=== PATIENT | female | born 1945 | race Hispanic/Latino ===

== ENCOUNTER 2018-06-09 06:02 | Inpatient (IN) | payer MEDICARE, MEDICAID ==
[2018-06-09 06:03] VITALS: BMI 31.2
--- NOTE | 2018-06-09 06:12 | ED PDOC ---
Arrival/HPI - General Chief Complaint: Abdominal Pain Time Seen by Provider: 06/09/18 06:07 Historian: Patient - History of Present Illness Narrative History of Present Illness (Text): 06/09/18 06:11 Carito Bernal is a 72 year old female, whose past medical history includes hypertension, who presents to the Emergency department brought in by EMS complaining of abdominal pain. Patient states she has been experiencing wors ening upper abdominal pain since 13:00 yesterday with associated nausea and multiple episodes of vomiting. Patient also reports some associated constipation. Patient denies any fever, chills, chest pain, shortness of breath, urinary symptoms, back pain, neck pain, headache, dizziness, or any other complaints. Symptom Onset: Gradual Symptom Course: Unchanged Activities at Onset: Light Context: Home Past Medical History - Provider Review Nursing Documentation Reviewed: Yes - Infectious Disease Hx of Infectious Diseases: None - Reproductive Menopause: Yes Family/Social History - Physician Review Nursing Documentation Reviewed: Yes Family/Social History: Unknown Family HX Allergies/Home Meds Allergies/Adverse Reactions: Allergies No Known Allergies Allergy (Verified 06/09/18 06:07) Home Medications: Home Meds Medication Instructions Recorded Confirmed No Known Home Med 06/09/18 06/09/18 Review of Systems - Physician Review All systems were reviewed & negative as marked: Yes - Review of Systems Constitutional: Normal. absent: Fevers Eyes: Normal ENT: Normal Respiratory: Normal. absent: SOB, Cough Cardiovascular: Normal. absent: Chest Pain Gastrointestinal: Abdominal Pain, Constipation, Nausea, Vomiting. absent: Diarrhea Genitourinary Female: Normal. absent: Dysuria, Frequency, Hematuria, Urine Output Changes Musculoskeletal: Normal. absent: Back Pain, Neck Pain Skin: Normal. absent: Rash Neurological: Normal. absent: Headache, Dizziness Endocrine: Normal Hemo/Lymphatic: Normal Psychiatric: Normal Physical Exam Vital Signs Reviewed: Yes Vital Signs Temp Pulse Resp BP Pulse Ox 06/09/18 06:03 98.6 F 76 20 167/116 H 99 Temperature: Afebrile Blood Pressure: Hypertensive Pulse: Regular Respiratory Rate: Normal Appearance: Positive for: Well-Appearing, Non-Toxic, Comfortable Pain Distress: None Mental Status: Positive for: Alert and Oriented X 3 - Systems Exam Head: Present: Atraumatic, Normocephalic Pupils: Present: PERRL Extroacular Muscles: Present: EOMI Conjunctiva: Present: Normal Mouth: Present: Moist Mucous Membranes Neck: Present: Normal Range of Motion Respiratory/Chest: Present: Clear to Auscultation, Good Air Exchange. No: Respiratory Distress, Accessory Muscle Use Cardiovascular: Present: Regular Rate and Rhythm, Normal S1, S2. No: Murmurs Abdomen: Present: Tenderness (RUQ tenderness), Guarding (Voluntary guarding). No: Distention, Peritoneal Signs Back: Present: Normal Inspection Upper Extremity: Present: Normal Inspection. No: Cyanosis, Edema Lower Extremity: Present: Normal Inspection. No: Edema Neurological: Present: GCS=15, CN II-XII Intact, Speech Normal Skin: Present: Warm, Dry, Normal Color. No: Rashes Psychiatric: Present: Alert, Oriented x 3, Normal Insight, Normal Concentration Medical Decision Making ED Course and Treatment: 06/09/18 06:11 Impression: 72 year old female complaining of upper abdominal pain with associated nausea and vomiting since 13:00 yesterday. Plan: -- EKG -- Chest X-ray -- US Abdomen -- Labs -- UA -- Reassess and disposition Progress Notes: Reviewed EKG, NSR at 72 bpm. Non-specific T wave changes. 06/09/18 07:[address] Esqueda, pending US, Chest X-ray, labs, reassessment, and final disposition. - EKG Interpretation Interpreted by ED Physician: Yes Type: 12 lead EKG - Scribe Statement The provider has reviewed the documentation as recorded by the Carmenzaibfloridalma Kendall Provider Scribe Attestation: All medical record entries made by the Scribe were at my direction and personally dictated by me. I have reviewed the chart and agree that the record accurately reflects my personal performance of the history, physical exam, medical decision making, and the department course for this patient. I have also personally directed, reviewed, and agree with the discharge instructions and disposition. Disposition/Present on Arrival - Present on Arrival Any Indicators Present on Arrival: No History of DVT/PE: No History of Uncontrolled Diabetes: No Urinary Catheter: No History of Decub. Ulcer: No History Surgical Site Infection Following: None - Disposition Have Diagnosis and Disposition been Completed?: No Diagnosis: Abdominal pain Disposition Time: 07:00 Condition: STABLE Forms: [employer] ([place]ic)
[2018-06-09] MEDS ORDERED: Morphine 2 mg/ml ISec IVP STA (06:28)
[2018-06-09] MEDS ORDERED: Sodium Chloride 0.9% 1,000 ML IV STA (06:28)
[2018-06-09 06:42] LABS: MEAN CELL VOLUME 93.8 fl (80.0-105.0); MEAN CORPUSCULAR HEMOGLOBIN 32.5 pg (25.0-35.0); MEAN CORPUSCULAR HGB CONC 34.7 g/dl (31.0-37.0); MEAN PLATELET VOLUME 9.7 fl (7.0-11.0); WHITE BLOOD COUNT 9.1 10^3/uL (4.5-11.0)
[2018-06-09 06:57] LABS: ALB/GLOB RATIO 1.3 (1.1-1.8); ALBUMIN 4.6 g/dL (3.0-4.8); ALT/SGPT 23 U/L (7-56); AST/SGOT 31 U/L (14-36); BLOOD UREA NITROGEN 20 mg/dL (7-21); CALCIUM 9.8 mg/dL (8.4-10.5); GFR NON-AFRICAN AMERICAN > 60; LIPASE 32 U/L (23-300)
--- NOTE | 2018-06-09 07:35 | ED PDOC ---
Physical Exam Vital Signs Reviewed: Yes Vital Signs Temp Pulse Resp BP Pulse Ox 06/09/18 06:03 98.6 F 76 20 140/83 99 Temperature: Afebrile Blood Pressure: Normal Pulse: Regular Respiratory Rate: Normal Appearance: Positive for: Well-Appearing, Non-Toxic, Comfortable Pain Distress: None Mental Status: Positive for: Alert and Oriented X 3 - Systems Exam Head: Present: Atraumatic, Normocephalic Pupils: Present: PERRL Extroacular Muscles: Present: EOMI Conjunctiva: Present: Normal Respiratory/Chest: Present: Clear to Auscultation, Good Air Exchange. No: Respiratory Distress, Accessory Muscle Use Cardiovascular: Present: Regular Rate and Rhythm, Normal S1, S2. No: Murmurs Abdomen: Present: Tenderness (RUQ tenderness), Guarding (Voluntary guarding). No: Distention, Peritoneal Signs Back: Present: Normal Inspection Upper Extremity: Present: Normal Inspection. No: Cyanosis, Edema Lower Extremity: Present: Normal Inspection. No: Edema Neurological: Present: GCS=15, CN II-XII Intact, Speech Normal Skin: Present: Warm, Dry, Normal Color. No: Rashes Psychiatric: Present: Alert, Oriented x 3, Normal Insight, Normal Concentration Medical Decision Making ED Course and Treatment: 06/09/18 07:00 Case endorsed to me by Dr. Becerra for pending US, Chest X-ray, labs, reassessment, and final disposition. Patient is a 72 year old female, who presented to the ED earlier today for evaluation of abdominal pain associated with nausea and multiple episodes of vomiting. Patient is currently resting in bed in no acute distress. Patient currently denies any new medical complaints. 06/09/18 07:44 Chest X-ray reviewed by radiologist, shows no acute disease. 06/09/18 07:56 US of Abdomen reviewed by radiologist, shows: Findings: Liver is normal in size measuring 14.9 cm. Right hepatic lobe cyst measuring 1 cm. Small amount of free perihepatic free fluid is noted. Positive sonographic [place]. Cholelithiasis. Gallbladder sludge is noted. Normal gallbladder wall thickness measuring 2.6 mm. Normal pancreas is visualized. Unremarkable IVC. Unremarkable aorta. Right renal simple cysts measuring 1.8 and 1.9 cm respectively. No other abnormality of the kidneys. Nondilated common bile duct measuring 5.8 mm Impression: Cholelithiasis. Acute calculus cholecystitis. - Lab Interpretations Lab Results: Total Bilirubin 0.6 mg/dL (0.2-1.3) 06/09/18 06:11 AST 31 U/L (14-36) 06/09/18 06:11 ALT 23 U/L (7-56) 06/09/18 06:11 Alkaline Phosphatase 88 U/L (38-126) 06/09/18 06:11 Total Protein 8.1 g/dL (5.8-8.3) 06/09/18 06:11 Albumin 4.6 g/dL (3.0-4.8) 06/09/18 06:11 Globulin 3.5 gm/dL 06/09/18 06:11 Albumin/Globulin Ratio 1.3 (1.1-1.8) 06/09/18 06:11 Lipase 32 U/L (23-300) 06/09/18 06:11 - RAD Interpretation Radiology Orders: 06/09/18 06:27 CHEST PORTABLE [RAD] Stat 06/09/18 06:28 ABDOMEN COMPLETE [US] Stat - Medication Orders Current Medication Orders: Discontinued Medications Sodium Chloride (Sodium Chloride 0.9%) 1,000 mls @ 999 mls/hr IV .Q1H1M STA Stop: 06/09/18 07:28 Last Admin: 06/09/18 06:37 Dose: 999 mls/hr eMAR Start Stop Document 06/09/18 06:37 EB (Rec: 06/09/18 06:37 EB [id number]) Intravenous Solution Start Date 06/09/18 Start Time 06:37 Morphine Sulfate (Morphine) 2 mg IVP STAT STA Stop: 06/09/18 06:29 Last Admin: 06/09/18 06:38 Dose: 2 mg MAR Pain Assessment Document 06/09/18 06:38 EB (Rec: 06/09/18 06:38 EB [id number]) Pain Reassessment Is this a pain reassessment? No Sleep Is patient sleeping during reassessment? No Presence of Pain Presence of Pain Yes Pain Scale Used Protocol: PSCALES Pain Scale Used Numeric Location Left, Right or Bilateral Left Upper or Lower Upper Pain Location Body Site Abdomen Description Intensity of Pain at present 8 Pain Behavior Irritability Facial Grimacing IVP Administration Document 01/28/19 06:38 EB (Rec: 06/09/18 06:38 EB [id number]) Charges for Administration # of IVP Administrations 1 Ondansetron HCl (Zofran Inj) 4 mg IVP ONCE ONE Stop: 06/09/18 06:31 Last Admin: 06/09/18 06:37 Dose: 4 mg IVP Administration Document 06/09/18 06:37 EB (Rec: 06/09/18 06:37 EB [id number]) Charges for Administration # of IVP Administrations 1 - Scribe Statement The provider has reviewed the documentation as recorded by the Scribe Taylor Dave. All medical record entries made by the Scribe were at my direction and personally dictated by me. I have reviewed the chart and agree that the record accurately reflects my personal performance of the history, physical exam, medical decision making, and the department course for this patient. I have also personally directed, reviewed, and agree with the discharge instructions and disposition. Disposition/Present on Arrival - Present on Arrival Any Indicators Present on Arrival: No History of DVT/PE: No History of Uncontrolled Diabetes: No Urinary Catheter: No History of Decub. Ulcer: No History Surgical Site Infection Following: None - Disposition Have Diagnosis and Disposition been Completed?: Yes Diagnosis: Abdominal pain, Acute cholecystitis Disposition: HOSPITALIZED Disposition Time: 08:15 Patient Problems: Current Active Problems Problem Status Onset Abdominal pain Acute Condition: FAIR
--- NOTE | 2018-06-09 07:42 | RAD ---
Date of service: 06/09/2018 HISTORY: abdominal pain COMPARISON: No prior. FINDINGS: LUNGS: No active pulmonary disease. PLEURA: No significant pleural effusion identified, no pneumothorax apparent. CARDIOVASCULAR: No aortic atherosclerotic calcification present. Normal cardiac size. No pulmonary vascular congestion. OSSEOUS STRUCTURES: No significant abnormalities. VISUALIZED UPPER ABDOMEN: Normal. OTHER FINDINGS: None. IMPRESSION: No acute cardiopulmonary disease appreciated.
--- NOTE | 2018-06-09 08:10 | US ---
Date of service: 06/09/2018 HISTORY: pain COMPARISON: None. TECHNIQUE: Sonographic evaluation of the abdomen. FINDINGS: LIVER: Measures 14.9 cm. Normal echogenicity of the liver parenchyma. There is a small cyst identified at the right lobe liver measure 1.0 x 1.0 cm. GALLBLADDER: Gallbladder is distended with cholelithiasis in the lumen and thickening of the wall up to 2.6 mm which is upper limits of normal. Trace pericholecystic fluid is suspected as well as sludge in the lumen of the gallbladder. There is hyperemia in the wall of gallbladder which is highly suspicious for cholecystitis. There is also a small positive sonographic Hoyos sign as per technologist. COMMON BILE DUCT: Measures 4.8 mm. No stones. No dilatation. PANCREAS: The body of the pancreas appears unremarkable but the head and tail are obscured by overling bowel/stomach gas. RIGHT KIDNEY: Measures 9.5cm. Small simple cysts are identified at the mid to lower pole measure 1.5 x 1.8 x 1.7 at the lower pole measure 1.9 x 1.3 x 1.6 cm. LEFT KIDNEY: Measures 12.2cm. Normal echogenicity. No calculus, mass, or hydronephrosis. SPLEEN: Normal in size and contour, measuring 11.2. No mass. AORTA: No aneurysmal dilatation. IVC: Unremarkable. OTHER FINDINGS: None. IMPRESSION: Pattern highly suspicious for cholecystitis. Clinically correlate. Normal CBD caliber. No choledocholithiasis is grossly evident. Small solitary, simple cyst is seen at the right lobe liver with 2 simple cysts identified at the right kidney
[2018-06-09 09:14] LABS: URINE BILIRUBIN NEGATIVE (NEGATIVE); URINE BLOOD TRACE-INTACT (NEGATIVE); URINE GLUCOSE (UA) NEGATIVE (NEGATIVE); URINE LEUKOCYTE ESTERASE NEGATIVE Leu/uL (NEGATIVE); URINE PROTEIN TRACE mg/dL (<30 mg/dL)
--- NOTE | 2018-06-09 09:14 | CP.PCM.CON ---
History of Present Illness - History of Present Illness History of Present Illness: Surgery consult note, Dr. Porter Reason for consult: RUQ pain 72 y/o female with PMH of HTN presnts to the ED with RUQ pain x1 day. Pain started after eating chicken with meatball yesterday, 01/20, intermittent, sharp, radiates to the back, progressive with no alleviating or worsening factors. It's associated with nausea, multiple episodes of NBNB vomiting. Patient denied fever, chills, diarrhea, hematemesis, hematochezia, melena. She denied h/o similar symptoms in the past, no history gallbladder/liver disease. Patient rosemary ed chest pain, SOB, headache, dizziness, leg swelling, urinary symptoms. She also denied recent travel or sick contacts. 12 points ROS reviewed with pertinent positives as above PMH: HTN PSH: denied Meds: amlodipine, atenolol All: NKDA SH: denied alcohol, smoking, drug use FH: non-contributory Past Patient History - Infectious Disease Hx of Infectious Diseases: None - Past Social History Smoking Status: Never Smoked - CARDIAC Hx Cardiac Disorders: No (pt denies) - PULMONARY Hx Respiratory Disorders: No - NEUROLOGICAL Hx Neurological Disorder: No - HEENT Hx HEENT Problems: No - RENAL Hx Chronic Kidney Disease: No - ENDOCRINE/METABOLIC Hx Endocrine Disorders: No - HEMATOLOGICAL/ONCOLOGICAL Hx Blood Disorders: No Hx AIDS: No - PSYCHIATRIC Hx Substance Use: No - SURGICAL HISTORY Hx Surgeries: No (pt denies) - ANESTHESIA Hx Anesthesia: No Meds Allergies/Adverse Reactions: Allergies Allergy/AdvReac Type Severity Reaction Status Date / Time No Known Allergies Allergy Verified 06/09/18 06:07 Physical Exam - Constitutional Appears: Well, No Acute Distress - Head Exam Head Exam: ATRAUMATIC, NORMAL INSPECTION, NORMOCEPHALIC - Eye Exam Eye Exam: EOMI, Normal appearance, PERRL Pupil Exam: NORMAL ACCOMODATION, PERRL - Neck Exam Neck exam: Positive for: Normal Inspection - Respiratory Exam Respiratory Exam: Clear to Auscultation Bilateral, NORMAL BREATHING PATTERN - Cardiovascular Exam Cardiovascular Exam: REGULAR RHYTHM - GI/Abdominal Exam GI & Abdominal Exam: Guarding (RUQ), Normal Bowel Sounds, Soft, Tenderness (RUQ). absent: Distended, Firm, Hernia, Organomegaly, Pulsatile Mass, Rebound, Rigid - Extremities Exam Extremities exam: Positive for: normal capillary refill, normal inspection, pedal pulses present - Neurological Exam Neurological exam: Alert, Oriented x3 - Psychiatric Exam Psychiatric exam: Anxious - Skin Skin Exam: Dry, Intact, Normal Color, Warm Results - Vital Signs Recent Vital Signs: Last Vital Signs Temp 98.6 F 06/09/18 06:03 Pulse 76 06/09/18 06:03 Resp 20 06/09/18 06:03 BP 140/83 06/09/18 06:03 Pulse Ox 99 06/09/18 06:03 - Labs Result Diagrams: 06/09/18 06:11 06/09/18 06:11 Labs: Laboratory Results - last 24 hr 06/09/18 06/09/18 06:11 06:11 WBC 9.1 RBC 4.00 Hgb 13.0 Hct 37.5 MCV 93.8 MCH 32.5 MCHC 34.7 RDW 13.0 Plt Count 173 MPV 9.7 Sodium 139 Potassium 3.8 Chloride 104 Carbon Dioxide 22 Anion Gap 16 BUN 20 Creatinine 0.6 L Est GFR ( Amer) > 60 Est GFR (Non-Af Amer) > 60 Random Glucose 187 H Calcium 9.8 Total Bilirubin 0.6 AST 31 ALT 23 Alkaline Phosphatase 88 Total Protein 8.1 Albumin 4.6 Globulin 3.5 Albumin/Globulin Ratio 1.3 Lipase 32 Assessment & Plan - Assessment and Plan (Free Text) Assessment: 72 y/o female with PMH of HTN presnts to the ED with RUQ pain x1 day Plan: -Patient afebrile, no leukocytosis, normal LFT/ALP/T-bili/Lipase -abd U/S: free perihepatic free fluid with GB sludge. Positive sonographic Hoy[place], GBW 2.6 mm, CBD 5.8 mm -pain control prn -continue PPI, antiemetic, IVF -started rocephin -further recs per surgical attending Dr. German Barrett DO
[2018-06-09 09:28] LABS: URINE APPEARANCE CLEAR (CLEAR); URINE COLOR YELLOW (YELLOW)
[2018-06-09 09:35] LABS: URINE AMORPHOUS SEDIMENT FEW /hpf; URINE BACTERIA MOD /hpf; URINE WBC 0 - 2 /hpf (0-6)
[2018-06-09] MEDS ORDERED: POLYETHYLENE GLYCOL 3350 17 GM/Dose PACKET PO STA (09:37)
[2018-06-09] MEDS ORDERED: Sodium Chloride 0.9% 1,000 ML IV SCH (09:45)
[2018-06-09] MEDS ORDERED: Piperacillin/Tazobact 3.375 gm 100 ML IVPB STA (09:49)
--- NOTE | 2018-06-09 11:26 | CARD ---
APPROVED REPORT Date of service: 06/09/2018 EKG Measurement Heart [id number] <Conclusion> Normal sinus rhythm Nonspecific T wave abnormality Prolonged QT Abnormal ECG
[2018-06-09] MEDS: cefTRIAXone 1 gm 1 GM/100 ML BAG IVPB SCH (11:32)
[2018-06-09] MEDS ORDERED: Morphine 2 mg/ml ISec IVP PRN (11:33)
--- NOTE | 2018-06-09 11:42 | CP.PCM.HP ---
<MohamudStyles - Last Filed: 06/10/18 00:03> History of Present Illness - History of Present Illness History of Present Illness: Stephani Mallory, PGY-1 Medicine H&P Progress Note for Dr. Lowery: CC: RUQ abd pain since 2 pm today Pt is a 72 yo F with pmhx of HTN who presents to the ED with complaints of RUQ pain since 2 pm. She admits to continued nausea and vomiting both of which started together this morning and is related to the abd pain. Pt states she had a similar episode in May. She states that the pain occurred after dinner yesterday. and she had multiple bouts of Non bloody, non-bilious vomiting. She states that the pain is raited to be a 9/10 and describes it as a sharp pain and that it feels as if a rock or stone is stuck in her belly. She also states that the pain radiates to her back. Pt otherwise states that she has no fevers, chills, headaches, lightheadedness, dizziness, chest pain, palpitations, SOB, cough, or dysuira. She admits to RUQ pain and nausea/vomiting. Pmhx: HTN Pshx: Denies Meds: Atenolol, norvasc All: NKDA Social: Denies any tobacco use or hx, denies recent etoh or illicit drug use Fam: non-contributory PMD: Carlos Pharm: Armani Baum Present on Admission - Present on Admission Any Indicators Present on Admission: No Review of Systems - Review of Systems Review of Systems: 12 point ROS negative except for noted in HPI above. Past Patient History - Infectious Disease Hx of Infectious Diseases: None - Past Social History Smoking Status: Never Smoked - CARDIAC Hx Cardiac Disorders: No (pt denies) - PULMONARY Hx Respiratory Disorders: No - NEUROLOGICAL Hx Neurological Disorder: No - HEENT Hx HEENT Problems: No - RENAL Hx Chronic Kidney Disease: No - ENDOCRINE/METABOLIC Hx Endocrine Disorders: No - HEMATOLOGICAL/ONCOLOGICAL Hx Blood Disorders: No Hx AIDS: No - PSYCHIATRIC Hx Substance Use: No - SURGICAL HISTORY Hx Surgeries: No (pt denies) - ANESTHESIA Hx Anesthesia: No Meds Allergies/Adverse Reactions: Allergies Allergy/AdvReac Type Severity Reaction Status Date / Time No Known Allergies Allergy Verified 06/09/18 06:07 Physical Exam - Constitutional Appears: Well, Non-toxic, No Acute Distress - Head Exam Head Exam: ATRAUMATIC, NORMAL INSPECTION, NORMOCEPHALIC - Eye Exam Eye Exam: EOMI, Normal appearance, PERRL - Respiratory Exam Respiratory Exam: Clear to Auscultation Bilateral, NORMAL BREATHING PATTERN. absent: Accessory Muscle Use, Rales, Rhonchi, Wheezes, Respiratory Distress - Cardiovascular Exam Cardiovascular Exam: RRR, +S1, +S2. absent: Gallop, Rubs - GI/Abdominal Exam GI & Abdominal Exam: Normal Bowel Sounds, Soft, Tenderness (present in RUQ with palpation, + murphys sign noted on exam). absent: Distended, Firm, Guarding - Extremities Exam Extremities exam: Positive for: normal capillary refill, normal inspection, pedal pulses present - Back Exam Back exam: NORMAL INSPECTION. absent: CVA tenderness (L), CVA tenderness (R) - Neurological Exam Neurological exam: Alert, Oriented x3 - Psychiatric Exam Psychiatric exam: Normal Affect, Normal Mood - Skin Skin Exam: Dry, Normal Color, Warm Results - Vital Signs Recent Vital Signs: Last Vital Signs Temp 98.6 F 06/09/18 06:03 Pulse 76 06/09/18 06:03 Resp 20 06/09/18 06:03 BP 140/83 06/09/18 06:03 Pulse Ox 99 06/09/18 06:03 - Labs Result Diagrams: 06/09/18 06:11 06/09/18 06:11 Labs: Laboratory Results - last 24 hr 06/09/18 06/09/18 06/09/18 06:11 06:11 09:00 WBC 9.1 RBC 4.00 Hgb 13.0 Hct 37.5 MCV 93.8 MCH 32.5 MCHC 34.7 RDW 13.0 Plt Count 173 MPV 9.7 Sodium 139 Potassium 3.8 Chloride 104 Carbon Dioxide 22 Anion Gap 16 BUN 20 Creatinine 0.6 L Est GFR ( Amer) > 60 Est GFR (Non-Af Amer) > 60 Random Glucose 187 H Calcium 9.8 Total Bilirubin 0.6 AST 31 ALT 23 Alkaline Phosphatase 88 Total Protein 8.1 Albumin 4.6 Globulin 3.5 Albumin/Globulin Ratio 1.3 Lipase 32 Urine Color Yellow Urine Appearance Clear Urine pH 6.0 Ur Specific [place] >= 1.030 Urine Protein Trace H Urine Glucose (UA) Negative Urine Ketones Trace H Urine Blood Trace-intact H Urine Nitrate Negative Urine Bilirubin Negative Urine Urobilinogen 1.0 H Ur Leukocyte Esterase Negative Urine RBC 1 - 3 H Urine WBC 0 - 2 Ur Epithelial Cells 4 - 5 Amorphous Sediment Few Urine Bacteria Mod Assessment & Plan - Assessment and Plan (Free Text) Assessment: Pt is a 72 yo F with pmhx of HTN who presents to the ED with complaints of RUQ pain since 2 pm. Plan: 1) Cholecystitis: - Pt has RUQ pain and nausea/vomiting associated with meals - Pt had abd U/S done in ED - free perihepatic free fluid with GB sludge. Positive sonographic [place] - NPO - NS @ 100/hr - Zofran 4mg q8 - Morphine 2mg q6 - Surgery Consulted - OR tomorrow - cont abx Rocephin, flagyl 2) Hx of HTN: - Home atenolol and norvasc held at this time, - Will continue to monitor. PPx: GI: Protonix 40 IVP DVT: SCDs. Case seen and discussed with Dr. Sebastián Mallory, PGY-1 <Yojana Lowery - Last Filed: 06/10/18 07:14> Results - Vital Signs Recent Vital Signs: Last Vital Signs Temp 99.5 F 06/09/18 22:00 Pulse 73 06/09/18 22:00 Resp 18 06/09/18 22:00 BP 125/63 06/09/18 11:43 Pulse Ox 99 06/09/18 12:12 - Labs Result Diagrams: 06/09/18 06:11 06/09/18 06:11 Labs: Laboratory Results - last 24 hr 06/09/18 09:00 Urine Color Yellow Urine Appearance Clear Urine pH 6.0 Ur Specific [place] >= 1.030 Urine Protein Trace H Urine Glucose (UA) Negative Urine Ketones Trace H Urine Blood Trace-intact H Urine Nitrate Negative Urine Bilirubin Negative Urine Urobilinogen 1.0 H Ur Leukocyte Esterase Negative Urine RBC 1 - 3 H Urine WBC 0 - 2 Ur Epithelial Cells 4 - 5 Amorphous Sediment Few Urine Bacteria Mod Attending/Attestation - Attestation I have personally seen and examined this patient.: Yes I have fully participated in the care of the patient.: Yes I have reviewed all pertinent clinical information: Yes Notes (Text): 06/09/18 72 year old female with past medical history of hypertension who presents with RUQ pain since yesterday. Found to have acute cholecystitis on ultrasound. LFTs are within normal limits. Continue with NPO, IVF, analgesics and antibiotics. Surgery evaluation was appreciated; plan for OR tomorrow. Yojana Lowery MD Hospitalist.
[2018-06-09] MEDS: metroNIDAZOLE IV 500 mg/100 ml 500 MG/100 ML BAG IVPB SCH ×2 (14:41→21:17)
[2018-06-09] MEDS ORDERED: Influenza Vaccine 60 mcg/0.5 mL SYR (4YR UP) IM ONE (18:01)
[2018-06-09] MEDS ORDERED: Pneumococcal 23-Valent Vaccine IM ONE (18:01)
[2018-06-09] MEDS: Morphine 2 mg/ml ISec IVP PRN (21:23)
--- NOTE | 2018-06-09 22:25 | CP.PCM.CON ---
History of Present Illness - History of Present Illness History of Present Illness: Surgery consult note- Dr. Robles Reason for consult: RUQ pain 72F PMHx significant for HTN presents to [facility] ED with RUQ pain x1 day after eating chicken with meatball yesterday, 01/20, intermittent, sharp, radiates to the back, progressive with no alleviating or worsening factors. + nausea, multiple episodes of NBNB vomiting. Denies: fever, chills, diarrhea, hematemesis, hematochezia, melena. She denied h/o similar symptoms in the past, no history gallbladder/liver disease. Patient denied chest pain, SOB, headache, dizziness, leg swelling, urinary symptoms. She also denied recent travel or sick contacts. 12 pt ROS conducted, negative otherwise stated above PMH: HTN PSH: denied Meds: amlodipine, atenolol All: NKDA SH: denied alcohol, smoking, drug use FH: non-contributory Review of Systems - Review of Systems All systems: reviewed and no additional remarkable complaints except - Constitutional Constitutional: As Per HPI Past Patient History - Infectious Disease Hx of Infectious Diseases: None - Past Social History Smoking Status: Never Smoked - CARDIAC Hx Cardiac Disorders: No (pt denies) - PULMONARY Hx Respiratory Disorders: No - NEUROLOGICAL Hx Neurological Disorder: No - HEENT Hx HEENT Problems: No - RENAL Hx Chronic Kidney Disease: No - ENDOCRINE/METABOLIC Hx Endocrine Disorders: No - HEMATOLOGICAL/ONCOLOGICAL Hx Blood Disorders: No Hx AIDS: No - INTEGUMENTARY Hx Dermatological Problems: No - MUSCULOSKELETAL/RHEUMATOLOGICAL Hx Musculoskeletal Disorders: Yes Hx Falls: No Other/Comment: intermittent generalized chronic pain to right hip r back and c/o intermittent muscle pain to left leg - GASTROINTESTINAL Hx Gastrointestinal Disorders: Yes (obese) Hx Gastroesophageal Reflux: Yes ("sometimes" otc nexium) - GENITOURINARY/GYNECOLOGICAL Hx Genitourinary Disorders: No - PSYCHIATRIC Hx Substance Use: No - SURGICAL HISTORY Hx Surgeries: No (pt denies) - ANESTHESIA Hx Anesthesia: No Meds Allergies/Adverse Reactions: Allergies Allergy/AdvReac Type Severity Reaction Status Date / Time No Known Allergies Allergy Verified 06/09/18 06:07 - Medications Medications: Current Medications Docusate Sodium (Colace Liquid) 100 mg PO BID [facility] Last Admin: 06/09/18 18:14 Dose: Not Given Ceftriaxone Sodium (Rocephin 1 Gram Ivpb) 1 gm in 100 mls @ 100 mls/hr IVPB DAILY [facility]; Protocol Last Admin: 06/09/18 11:32 Dose: 100 mls/hr Metronidazole (Flagyl) 500 mg in 100 mls @ 100 mls/hr IVPB Q8 [facility]; Protocol Last Admin: 06/09/18 21:17 Dose: 100 mls/hr Lactated Ringer's (Lactated Ringer's) 1,000 mls @ 125 mls/hr IV .Q8H [facility] Ketorolac Tromethamine (Toradol) 15 mg IVP Q6H PRN PRN Reason: Pain, moderate (4-7) Last Admin: 06/09/18 10:22 Dose: 15 mg Morphine Sulfate (Morphine) 2 mg IVP Q6H PRN PRN Reason: Pain, severe (8-10) Last Admin: 06/09/18 21:23 Dose: 2 mg Pantoprazole Sodium (Protonix Inj) 40 mg IVP DAILY [facility] Last Admin: 06/09/18 11:33 Dose: 40 mg Physical Exam - Constitutional Appears: Non-toxic, No Acute Distress - Head Exam Head Exam: ATRAUMATIC - Eye Exam Eye Exam: EOMI. absent: Scleral icterus - ENT Exam ENT Exam: Mucous Membranes Moist - Respiratory Exam Respiratory Exam: NORMAL BREATHING PATTERN. absent: Accessory Muscle Use, Respiratory Distress - Cardiovascular Exam Cardiovascular Exam: REGULAR RHYTHM. absent: Bradycardia, Tachycardia - GI/Abdominal Exam GI & Abdominal Exam: Guarding (voluntary guarding), Soft, Tenderness (Tender to palpation in RUQ. + [place] sign). absent: Distended, Firm, Hernia, Rigid - Extremities Exam Extremities exam: Negative for: calf tenderness - Neurological Exam Neurological exam: Alert, Oriented x3 - Psychiatric Exam Psychiatric exam: Normal Affect - Skin Skin Exam: Intact, Warm Results - Vital Signs Recent Vital Signs: Last Vital Signs Temp 99.5 F 06/09/18 12:12 Pulse 73 06/09/18 17:34 Resp 18 06/09/18 17:34 BP 125/63 06/09/18 11:43 Pulse Ox 99 06/09/18 12:12 - Labs Result Diagrams: 06/09/18 06:11 06/09/18 06:11 Labs: Laboratory Results - last 24 hr 06/09/18 06/09/18 06/09/18 06:11 06:11 09:00 WBC 9.1 RBC 4.00 Hgb 13.0 Hct 37.5 MCV 93.8 MCH 32.5 MCHC 34.7 RDW 13.0 Plt Count 173 MPV 9.7 Sodium 139 Potassium 3.8 Chloride 104 Carbon Dioxide 22 Anion Gap 16 BUN 20 Creatinine 0.6 L Est GFR ( Amer) > 60 Est GFR (Non-Af Amer) > 60 Random Glucose 187 H Calcium 9.8 Total Bilirubin 0.6 AST 31 ALT 23 Alkaline Phosphatase 88 Total Protein 8.1 Albumin 4.6 Globulin 3.5 Albumin/Globulin Ratio 1.3 Lipase 32 Urine Color Yellow Urine Appearance Clear Urine pH 6.0 Ur Specific [place] >= 1.030 Urine Protein Trace H Urine Glucose (UA) Negative Urine Ketones Trace H Urine Blood Trace-intact H Urine Nitrate Negative Urine Bilirubin Negative Urine Urobilinogen 1.0 H Ur Leukocyte Esterase Negative Urine RBC 1 - 3 H Urine WBC 0 - 2 Ur Epithelial Cells 4 - 5 Amorphous Sediment Few Urine Bacteria Mod Assessment & Plan - Assessment and Plan (Free Text) Assessment: 72F pmhx HTN w/ Acute Cholecystitis abd U/S: free perihepatic free fluid with GB sludge. Positive sonographic [place], GBW 2.6 mm, CBD 5.8 mm Plan: - Plan for OR tomorrow for Cholecystectomy - Consent obtained, risks and benefits explained. - NPO - IVF/Abx - anti-emetic and analagesia PRN - serial abd exams - discussed w/ Dr. Robles Surgical attending [facility] PGY2
[2018-06-09] MEDS ORDERED: Lactated Ringer's 1,000 ML IV SCH (22:30)
[2018-06-10] MEDS: metroNIDAZOLE IV 500 mg/100 ml 500 MG/100 ML BAG IVPB SCH ×3 (05:06→21:37)
[2018-06-10 07:14] LABS: BASO # 0.01 K/mm3 (0.0-2.0); BASO % 0.1 % (0.0-3.0); LYMPH # 0.9 (1.2-3.4); LYMPH % 6.1 % (22.0-35.0); MEAN CELL VOLUME 94.8 fl (80.0-105.0); MEAN CORPUSCULAR HEMOGLOBIN 31.5 pg (25.0-35.0); MEAN CORPUSCULAR HGB CONC 33.2 g/dl (31.0-37.0); MEAN PLATELET VOLUME 9.8 fl (7.0-11.0); MONO # 1.2 (0.1-0.6); MONO % 7.5 % (1.0-6.0); RBC 3.81 10^6/uL (3.5-6.1); RED CELL DISTRIBUTION WIDTH 13.3 % (11.5-14.5); WHITE BLOOD COUNT 15.4 10^3/uL (4.5-11.0)
[2018-06-10 07:26] LABS: INR 1.96; PARTIAL THROMBOPLASTIN TIME 33.6 Seconds (26.9-38.3); PROTHROMBIN TIME 22.2 SECONDS (9.4-12.5)
[2018-06-10 07:32] LABS: ALB/GLOB RATIO 1.2 (1.1-1.8); ALBUMIN 3.8 g/dL (3.0-4.8); ALT/SGPT 31 U/L (7-56); AST/SGOT 36 U/L (14-36); BLOOD UREA NITROGEN 15 mg/dL (7-21); CALCIUM 9.1 mg/dL (8.4-10.5); GFR NON-AFRICAN AMERICAN > 60
[2018-06-10] MEDS ORDERED: Propofol 10 mg/ml Inj (20 ML) ONE (07:38)
[2018-06-10] MEDS ORDERED: Midazolam 2 MG/2 ML VIAL ONE (07:38)
[2018-06-10] MEDS ORDERED: Rocuronium 10 mg/ml (5 ml) ONE ×2 (07:39→10:09)
[2018-06-10] MEDS ORDERED: Bupivacaine 0.5% Inj(30mL) IJ ONE ×2 (08:00)
[2018-06-10] MEDS ORDERED: Morphine 2 mg/ml ISec IVP PRN ×2 (08:18→08:29)
[2018-06-10] MEDS ORDERED: Iohexol 240 (50 ml) IVP ONE (08:25)
[2018-06-10] MEDS ORDERED: Sodium Chloride 0.9% 1,000 ML IV SCH (08:30)
[2018-06-10] MEDS ORDERED: Neostigmine Methylsulfate 3mg/3ml Syringe IV ONE (10:19)
[2018-06-10] MEDS ORDERED: Glycopyrrolate 0.2 mg/ml (2ml vial) ONE (10:19)
--- NOTE | 2018-06-10 10:58 | PCM.SURG1 ---
Surgeon's Initial Post Op Note - Surgeon's Notes Surgeon: Dr. Robles Rehabilitation Worker: Getachew Doyle Type of Anesthesia: General Endo, Local Anesthesia Administered By: Derek Pre-Operative Diagnosis: Cholecystitis Operative Findings: multiple small to large gallstones, stone spillage, gangrenous GB, GB fused to liver, 200cc of bile in the GB Post-Operative Diagnosis: Gangrenous cholecystitis Operation Performed: Laparoscopic cholecystectomy with cholangiogram Specimen/Specimens Removed: Gallstones, Gallbladder Estimated Blood Loss: EBL {In ML}: 50 Blood Products Given: N/A Drains Used: No Drains Post-Op Condition: Good Date of Surgery/Procedure: 06/10/18 Time of Surgery/Procedure: 10:59
[2018-06-10] MEDS ORDERED: Morphine 4 mg/ml ISec ONE (11:25)
--- NOTE | 2018-06-10 14:43 | CP.PCM.PN ---
<Stephani Mallory - Last Filed: 06/10/18 16:24> Subjective - Date & Time of Evaluation Date of Evaluation: 06/10/18 Time of Evaluation: 14:31 - Subjective Subjective: Stephani Mallory, PGY-1 Medicine H&P Progress Note for Dr. Lowery: Pt was seen and examined this PM at bedside. Pt had lap brian this AM. Pt is now back in bed and states that she has no pain. She states that she is using her incentive spirometer every hour and is having no fevers, chills, cough, SOB, nausea or vomiting. She states that she has no appetite and has no other acute complaints at this time. Objective - Vital Signs/Intake and Output Vital Signs (last 24 hours): Temp Pulse Resp BP Pulse Ox 98.8 F 79 15 107/52 L 97 06/10/18 11:25 06/10/18 11:25 06/10/18 11:25 06/10/18 11:25 06/10/18 11:25 - Medications Medications: Current Medications Docusate Sodium (Colace Liquid) 100 mg PO BID [facility] Last Admin: 06/09/18 18:14 Dose: Not Given Ceftriaxone Sodium (Rocephin 1 Gram Ivpb) 1 gm in 100 mls @ 100 mls/hr IVPB DAILY [facility]; Protocol Last Admin: 06/09/18 11:32 Dose: 100 mls/hr Metronidazole (Flagyl) 500 mg in 100 mls @ 100 mls/hr IVPB Q8 [facility]; Protocol Last Admin: 06/10/18 13:50 Dose: 100 mls/hr Lactated Ringer's (Lactated Ringer's) 1,000 mls @ 125 mls/hr IV .Q8H [facility] Last Admin: 06/10/18 05:46 Dose: 125 mls/hr Ketorolac Tromethamine (Toradol) 15 mg IVP Q6H PRN PRN Reason: Pain, moderate (4-7) Last Admin: 06/09/18 10:22 Dose: 15 mg Morphine Sulfate (Morphine) 2 mg IVP Q6H PRN PRN Reason: Pain, severe (8-10) Last Admin: 06/09/18 21:23 Dose: 2 mg Morphine Sulfate (Morphine) 2 mg IVP Q15M PRN PRN Reason: Pain, moderate (4-7) Last Admin: 06/10/18 11:21 Dose: 2 mg Ondansetron HCl (Zofran Inj) 4 mg IVP ONCE PRN PRN Reason: Nausea/Vomiting Pantoprazole Sodium (Protonix Inj) 40 mg IVP DAILY [facility] Last Admin: 06/09/18 11:33 Dose: 40 mg - Labs Labs: 06/10/18 06:50 06/10/18 06:50 PT 22.2 SECONDS (9.4-12.5) H 06/10/18 06:50 INR 1.96 06/10/18 06:50 APTT 33.6 Seconds (26.9-38.3) 06/10/18 06:50 - Constitutional Appears: Well, Non-toxic, No Acute Distress - Head Exam Head Exam: ATRAUMATIC, NORMAL INSPECTION, NORMOCEPHALIC - Eye Exam Eye Exam: EOMI, Normal appearance, PERRL - Respiratory Exam Respiratory Exam: Clear to Ausculation Bilateral, NORMAL BREATHING PATTERN. absent: Accessory Muscle Use, Rhonchi, Wheezes, Respiratory Distress, Stridor - Cardiovascular Exam Cardiovascular Exam: RRR, +S1, +S2. absent: Gallop, Rubs - GI/Abdominal Exam GI & Abdominal Exam: Soft, Normal Bowel Sounds. absent: Firm, Guarding, Rigid, Tenderness Additional comments: Incision is noted to be clean, and dry with no sign of bleeding or discharge. - Extremities Exam Extremities Exam: Normal Capillary Refill, Normal Inspection - Back Exam Back Exam: NORMAL INSPECTION. absent: CVA tenderness (L), CVA tenderness (R) - Neurological Exam Neurological Exam: Alert, Awake, Oriented x3 - Psychiatric Exam Psychiatric exam: Normal Affect, Normal Mood - Skin Skin Exam: Dry, Normal Color, Warm Assessment and Plan - Assessment and Plan (Free Text) Assessment: Pt is a 72 yo F with pmhx of HTN who presents to the ED with complaints of RUQ p ain since 2 pm. Went for lap brian this AM at 7 POD #0. Plan: 1) Cholecystitis s/p lap brian 06/10/18 - Pt is s/p lap brian earlier today - HHD per surgery - Cont IS use - Morphine 2Q6 PRN for pain - Cont abx - rocephin and flagyl 2) Hx of HTN: - Home atenolol and norvasc held at this time, - Will continue to monitor. PPx: GI: Protonix 40 IVP DVT: SCDs. <Yojana Lowery - Last Filed: 06/10/18 16:45> Objective - Vital Signs/Intake and Output Vital Signs (last 24 hours): Temp Pulse Resp BP Pulse Ox 98.8 F 79 15 107/52 L 97 06/10/18 11:25 06/10/18 11:25 06/10/18 11:25 06/10/18 11:25 06/10/18 11:25 Intake and Output: 06/10/18 06/10/18 06:59 18:59 Intake Total 480 Balance 480 - Medications Medications: Current Medications Docusate Sodium (Colace Liquid) 100 mg PO BID [facility] Last Admin: 06/09/18 18:14 Dose: Not Given Ceftriaxone Sodium (Rocephin 1 Gram Ivpb) 1 gm in 100 mls @ 100 mls/hr IVPB DAILY [facility]; Protocol Last Admin: 06/09/18 11:32 Dose: 100 mls/hr Metronidazole (Flagyl) 500 mg in 100 mls @ 100 mls/hr IVPB Q8 [facility]; Protocol Last Admin: 06/10/18 13:50 Dose: 100 mls/hr Lactated Ringer's (Lactated Ringer's) 1,000 mls @ 125 mls/hr IV .Q8H [facility] Last Admin: 06/10/18 05:46 Dose: 125 mls/hr Ketorolac Tromethamine (Toradol) 15 mg IVP Q6H PRN PRN Reason: Pain, moderate (4-7) Last Admin: 06/09/18 10:22 Dose: 15 mg Morphine Sulfate (Morphine) 2 mg IVP Q6H PRN PRN Reason: Pain, severe (8-10) Last Admin: 06/09/18 21:23 Dose: 2 mg Morphine Sulfate (Morphine) 2 mg IVP Q15M PRN PRN Reason: Pain, moderate (4-7) Last Admin: 06/10/18 11:21 Dose: 2 mg Ondansetron HCl (Zofran Inj) 4 mg IVP ONCE PRN PRN Reason: Nausea/Vomiting Pantoprazole Sodium (Protonix Inj) 40 mg IVP DAILY [facility] Last Admin: 06/09/18 11:33 Dose: 40 mg - Labs Labs: 06/10/18 06:50 06/10/18 06:50 PT 22.2 SECONDS (9.4-12.5) H 06/10/18 06:50 INR 1.96 06/10/18 06:50 APTT 33.6 Seconds (26.9-38.3) 06/10/18 06:50 Attending/Attestation - Attestation I have personally seen and examined this patient.: Yes I have fully participated in the care of the patient.: Yes I have reviewed all pertinent clinical information, including history, physical exam and plan: Yes Notes (Text): 06/10/18 16:42 72 year old female with past medical history of hypertension who presented with RUQ pain; found to have acute cholecystitis on ultrasound. Surgery evaluation was appreciated and patient is s/p laproscopic cholecystecomy POD #0. Leukocytosis noted. Will monitor and continue with iv antibiotics. Continue with analgesics as needed. Advance diet as per surgery. Possible d/c planning tomorrow if stable. Yojana Lowery MD Hospitalist.
--- NOTE | 2018-06-10 18:29 | RAD ---
Date of service: 06/10/2018 PROCEDURE: Fluoroscopy up to 1 hr. Intraoperative cholangiogram HISTORY: R/O OBSTRUCTION COMPARISON: None TECHNIQUE: Standard protocol for this study/examination. FINDINGS: Total fluoroscopic time (continuous mode) utilized during the procedure 16.0 seconds. Total exam DLP: 3.75 (mGy). IMPRESSION: Submitted images from the current procedure: 3.0. Less than 1 hr fluoroscopic assistance provided during performance of the procedure.
[2018-06-11] MEDS: Morphine 2 mg/ml ISec IVP PRN (00:45)
[2018-06-11] MEDS: metroNIDAZOLE IV 500 mg/100 ml 500 MG/100 ML BAG IVPB SCH ×2 (05:12→14:20)
[2018-06-11 06:59] LABS: MEAN CORPUSCULAR HEMOGLOBIN 31.7 pg (25.0-35.0); MEAN PLATELET VOLUME 9.8 fl (7.0-11.0); RBC 3.03 10^6/uL (3.5-6.1); RED CELL DISTRIBUTION WIDTH 13.7 % (11.5-14.5); WHITE BLOOD COUNT 7.9 10^3/uL (4.5-11.0)
[2018-06-11 07:28] LABS: HEMOGLOBIN 9.6 g/dL (12.0-16.0)
[2018-06-11 07:30] LABS: ALB/GLOB RATIO 1.1 (1.1-1.8); ALBUMIN 2.8 g/dL (3.0-4.8); ALT/SGPT 48 U/L (7-56); AST/SGOT 45 U/L (14-36); BLOOD UREA NITROGEN 17 mg/dL (7-21); CALCIUM 8.5 mg/dL (8.4-10.5); GFR NON-AFRICAN AMERICAN > 60
[2018-06-11] MEDS ORDERED: Oxycodone/Acetaminophen 5/325 mg Tab PO PRN (07:33)
[2018-06-11] MEDS: cefTRIAXone 1 gm 1 GM/100 ML BAG IVPB SCH (09:37)
--- NOTE | 2018-06-11 10:51 | CP.PCM.PN ---
Subjective - Date & Time of Evaluation Date of Evaluation: 06/11/18 Time of Evaluation: 10:48 - Subjective Subjective: Surgery Progress note- Dr. Robles Patient seen and examined at bedside. States she is feeling better than yesterday. Has some yudy-incisional pain, and some flank pain. Appropriate pain control. on ABx. has minimal food intake yesterday, feels a little more hungry today. Denies vomiting, fevers, chills, chest pain. Objective - Vital Signs/Intake and Output Vital Signs (last 24 hours): Temp Pulse Resp BP Pulse Ox 99 F 96 H 20 122/64 97 06/10/18 23:01 06/10/18 23:01 06/10/18 23:01 06/10/18 23:01 06/10/18 11:25 - Medications Medications: Current Medications Docusate Sodium (Colace Liquid) 100 mg PO BID [facility] Last Admin: 06/11/18 09:37 Dose: 100 mg Ceftriaxone Sodium (Rocephin 1 Gram Ivpb) 1 gm in 100 mls @ 100 mls/hr IVPB DAILY [facility]; Protocol Last Admin: 06/11/18 09:37 Dose: 100 mls/hr Metronidazole (Flagyl) 500 mg in 100 mls @ 100 mls/hr IVPB Q8 [facility]; Protocol Last Admin: 06/11/18 05:12 Dose: 100 mls/hr Lactated Ringer's (Lactated Ringer's) 1,000 mls @ 125 mls/hr IV .Q8H [facility] Last Admin: 06/10/18 05:46 Dose: 125 mls/hr Oxycodone/Acetaminophen (Percocet 5/325 Mg Tab) 1 tab PO Q6H PRN PRN Reason: Pain, moderate (4-7) Stop: 06/14/18 07:34 Last Admin: 06/11/18 09:36 Dose: 1 tab Pantoprazole Sodium (Protonix Inj) 40 mg IVP DAILY [facility] Last Admin: 06/11/18 09:38 Dose: 40 mg - Labs Labs: 06/11/18 06:30 06/11/18 06:30 PT 22.2 SECONDS (9.4-12.5) H 06/10/18 06:50 INR 1.96 06/10/18 06:50 APTT 33.6 Seconds (26.9-38.3) 06/10/18 06:50 - Constitutional Appears: Non-toxic, No Acute Distress - Head Exam Head Exam: ATRAUMATIC - Eye Exam Eye Exam: EOMI. absent: Scleral icterus - ENT Exam ENT Exam: Mucous Membranes Moist - Respiratory Exam Respiratory Exam: NORMAL BREATHING PATTERN. absent: Accessory Muscle Use, Respiratory Distress - Cardiovascular Exam Cardiovascular Exam: REGULAR RHYTHM. absent: Bradycardia, Tachycardia - GI/Abdominal Exam GI & Abdominal Exam: Soft, Tenderness (mild tenderness yudy-incisional, and Right flank). absent: Distended, Firm, Guarding, Rigid - Neurological Exam Neurological Exam: Alert, Awake, Oriented x3 - Psychiatric Exam Psychiatric exam: Normal Affect - Skin Skin Exam: Intact, Warm Assessment and Plan - Assessment and Plan (Free Text) Assessment: 72F s/p Laparoscopic Cholecystectomy POD#1 for gangrenous acute cholecystitis Plan: - analgesia and anti-emetic PRN - Regular diet as tolerated - OOB and ambulate - c/w Abx due to severity of GB infection and some bile spillage - will monitor patient clinically today - if she if feeling better later in the day, plan for Discharge - d/w Dr. Travis Garcia PGY2
[2018-06-11] MEDS: Enoxaparin 40 mg Syringe SC SCH (12:14)
--- NOTE | 2018-06-11 12:37 | PCM.OP ---
Operative Report - Operative Report Date of Surgery/Procedure: 06/11/18 Time of Surgery/Procedure: 12:28 Surgeon: Dr. Robles Evs Tech: Gregg Mathews PGY3 Anesthesia/Sedation: General anesthesia by Dr. Reed Pre-Operative Diagnosis: Cholecystitis Post-Operative Diagnosis: Gangrenous cholecystitis Indication for Surgery: This is 72F came with RUQ abdominal pain and nausea, vomiting. Pt was found to have cholecystitis. US showed distended gallbladder with thicken wall and multiple small stones. Pt decided to undergo laparoscopic cholecystectomy with cholangiogram. Risk and benefits were explained including bile leak, CBD injury informed consent were obtained. Operative Findings: Gallbladder was grossly distended and gangrenous, thicken inflammed adjacent omentum, Gallbladder was fused to the liver, multiple small to large gallstones, patent cystic duct , CBD, hepatic ducts Procedure/Operation Description: Patient was brought to the operating room and placed in the supine position. Then she was connected to the EKG , blood pressure cuff and pulse oxymetry monitors. Preoperatively pt was on IV ABX. Pt then underwent general endotracheal anesthesia. Pt was then prepped and draped in the usual sterile fashion. A standard time out procedure took place where everybody in the room agreed as to the patient identity , diagnosis and procedure to be performed. Skin was elevated with two towel clips, local anesthesia was infiltrated to supraumbilicus , 2 cm incision was made with # 11 blade. Liz clamp was used to dissect the subdermal tissue. Vasses needle inserted and abdomen was insufflated. 12mm port was inserted,. 10mm camera was inserted. Entry into the peritoneum was confirmed visually. We observed throughout the entire abdomen. No injury was noted. Local injection was infiltrated on subxyphyoid area. Additional 5mm incision was made. 5mm trocar was inserted under direct visualization through the falciform ligament. The table was placed in reverse Trendelenburg and right side up. Gallbladder was grossly distended and gangrenous, thicken inflammed adjacent omentum, Gallbladder was fused to the liver. Needle was inserted through subxyphoid port to decompress the gallbladder 200cc of thick bile was aspirated. Infundibulum of the gallbladder was grasped. Peritoneum was taken down near the infundibulum and cystic duct using maryland grasper. Then the posterior peritoneum was dissected. The triangle was dissected to expose:cystic artery and cystic duct. Small vascular structure was encountered anterior to the cystic duct. It was bovied. There was pulsation of the stump. No bleeding from the stump. A clip was placed on the cystic duct close to the neck of the gallbladder. A johnson was made in the cystic duct and a cholangiogram catheter threaded. A cholangiogram was obtained and showed good flow of bile into the duodenum, an intact biliary tree, and absence of any filling defects. The cystic duct was doubly clipped and divided. The cystic artery was doubly clipped. The electrocautery was then used to separate the peritoneal attachments between the gallbladder and its bed in the liver. There was torn gallbladder at the body of the gallbladder at the necrotic part. There was numerous 2mm - 1cm gallstones. Gallbladder was fused to the liver. Gallbladder was removed from the liver bed. The gallbladder, once freed, was placed in an endoscopic retrieval bag and removed from the abdomen through the epigastric port via direct vision. The specimen was sent to pathology. The gallbladder fossa and cystic artery were inspected to ensure no bleeding. There was no leakage of bile from the cystic duct stump. All the stones were removed. Abdomen was irrigated and suctioned with copious amount of fluids. Abdomen was reinspected, irrigated and suctioned. The fascia at the supra-umbilical and epigastric ports were re-approximated using the 1-0 vicryl sutures. All incisions were closed using 4-0 monocryl sutures subcuticular fashion. The operative field was cleaned and dried. Dermabond was applied. Dr. Salazar was Present and participated in all aspects of the procedure. Estimated Blood Loss: 50 Sponge/Instrument Count: Correct. Complications: There were no intraoperative complications Discharge & Condition: A surgical de-briefing was performed. The patient was extubated and transferred to the PACU in stable condition.
--- NOTE | 2018-06-11 13:13 | CP.PCM.PN ---
<Stephani Mallory - Last Filed: 06/11/18 19:17> Subjective - Date & Time of Evaluation Date of Evaluation: 06/11/18 Time of Evaluation: 19:17 - Subjective Subjective: Stephani Mallory, PGY-1 Medicine H&P Progress Note for Dr. Lowery: Pt was seen and examined this PM at bedside. Pt had lap brian yesterday AM, POD#1. She states that now she is feeling the pain more than she was yesterday. She states that she has not passed flatus or BM as of yet. She states that she has no appetite and has no other acute complaints at this time. Objective - Vital Signs/Intake and Output Vital Signs (last 24 hours): Temp Pulse Resp BP Pulse Ox 99 F 96 H 20 122/64 97 06/10/18 23:01 06/10/18 23:01 06/10/18 23:01 06/10/18 23:01 06/10/18 11:25 - Medications Medications: Current Medications Acetaminophen (Tylenol 325mg Tab) 650 mg PO Q6H PRN PRN Reason: Pain, moderate (4-7) Docusate Sodium (Colace Liquid) 100 mg PO BID SKYE Last Admin: 06/11/18 09:37 Dose: 100 mg Enoxaparin Sodium (Lovenox) 40 mg SC DAILY SKYE; Protocol Last Admin: 06/11/18 12:14 Dose: 40 mg Ceftriaxone Sodium (Rocephin 1 Gram Ivpb) 1 gm in 100 mls @ 100 mls/hr IVPB DAILY SKYE; Protocol Last Admin: 06/11/18 09:37 Dose: 100 mls/hr Metronidazole (Flagyl) 500 mg in 100 mls @ 100 mls/hr IVPB Q8 SKYE; Protocol Last Admin: 06/11/18 05:12 Dose: 100 mls/hr Lactated Ringer's (Lactated Ringer's) 1,000 mls @ 125 mls/hr IV .Q8H SKYE Last Admin: 06/10/18 05:46 Dose: 125 mls/hr Pantoprazole Sodium (Protonix Ec Tab) 40 mg PO ACB SKYE Tramadol HCl (Ultram) 25 mg PO TID PRN PRN Reason: Pain, severe (8-10) - Labs Labs: 06/11/18 06:30 06/11/18 06:30 PT 22.2 SECONDS (9.4-12.5) H 06/10/18 06:50 INR 1.96 06/10/18 06:50 APTT 33.6 Seconds (26.9-38.3) 06/10/18 06:50 - Constitutional Appears: Well, Non-toxic, No Acute Distress - Head Exam Head Exam: ATRAUMATIC, NORMAL INSPECTION, NORMOCEPHALIC - Eye Exam Eye Exam: EOMI, Normal appearance, PERRL - Respiratory Exam Respiratory Exam: Clear to Ausculation Bilateral, NORMAL BREATHING PATTERN. absent: Accessory Muscle Use, Prolonged Expiratory Phase, Rales, Rhonchi, Wheezes, Respiratory Distress - Cardiovascular Exam Cardiovascular Exam: RRR, +S1, +S2. absent: Gallop, Rubs - GI/Abdominal Exam GI & Abdominal Exam: Soft, Normal Bowel Sounds. absent: Firm, Guarding, Rigid, Tenderness Additional comments: Incision is noted to be clean, and dry with no sign of bleeding or discharge. Incision is healing well. - Extremities Exam Extremities Exam: Normal Inspection. absent: Calf Tenderness, Pedal Edema, Tenderness - Back Exam Back Exam: NORMAL INSPECTION. absent: CVA tenderness (L), CVA tenderness (R) - Neurological Exam Neurological Exam: Alert, Awake, Oriented x3 - Psychiatric Exam Psychiatric exam: Normal Affect, Normal Mood - Skin Skin Exam: Dry, Normal Color, Warm Assessment and Plan - Assessment and Plan (Free Text) Assessment: Pt is a 72 yo F with pmhx of HTN who presents to the ED with complaints of RUQ pain since 2 pm. Went for lap brian yesterday AM @ 7 POD #1. Plan: 1) Cholecystitis s/p lap brian 06/10/18 - POD1 - Pt is s/p lap brian 06/10/18 - HHD per surgery - Cont IS use - tramadol 25mg PO TID PRN for pain - Cont abx - rocephin and flagyl - When pt is ready for d/c - d/c on 5 days of keflex - Awaiting pt to have BM per surgery 2) Hx of HTN: - Home atenolol and norvasc held at this time, - Will continue to monitor. PPx: GI: Protonix 40 IVP DVT: SCDs. Case seen and discussed with Dr. Lowery: Stephani Mallory, PGY-1 <Yojana Lowery - Last Filed: 06/12/18 06:48> Objective - Vital Signs/Intake and Output Vital Signs (last 24 hours): Temp Pulse Resp BP Pulse Ox 100 F H 91 H 20 140/83 94 L 06/11/18 22:00 06/11/18 22:00 06/11/18 22:00 06/11/18 22:00 06/11/18 22:00 Intake and Output: 06/11/18 06/12/18 18:59 06:59 Intake Total 780 180 Balance 780 180 - Medications Medications: Current Medications Acetaminophen (Tylenol 325mg Tab) 650 mg PO Q6H PRN PRN Reason: Pain, moderate (4-7) Docusate Sodium (Colace Liquid) 100 mg PO BID SKYE Last Admin: 06/11/18 18:10 Dose: Not Given Enoxaparin Sodium (Lovenox) 40 mg SC DAILY SKYE; Protocol Last Admin: 06/11/18 12:14 Dose: 40 mg Ceftriaxone Sodium (Rocephin 1 Gram Ivpb) 1 gm in 100 mls @ 100 mls/hr IVPB DAILY SKYE; Protocol Last Admin: 06/11/18 09:37 Dose: 100 mls/hr Metronidazole (Flagyl) 500 mg in 100 mls @ 100 mls/hr IVPB Q8 SKYE; Protocol Last Admin: 06/12/18 06:13 Dose: 100 mls/hr Pantoprazole Sodium (Protonix Ec Tab) 40 mg PO ACB SKYE Tramadol HCl (Ultram) 25 mg PO TID PRN PRN Reason: Pain, severe (8-10) - Labs Labs: 06/11/18 16:47 06/11/18 06:30 PT 22.2 SECONDS (9.4-12.5) H 06/10/18 06:50 INR 1.96 06/10/18 06:50 APTT 33.6 Seconds (26.9-38.3) 06/10/18 06:50 Attending/Attestation - Attestation I have personally seen and examined this patient.: Yes I have fully participated in the care of the patient.: Yes I have reviewed all pertinent clinical information, including history, physical exam and plan: Yes Notes (Text): 06/11/18 72 year old female with past medical history of hypertension who presented with RUQ pain; found to have acute cholecystitis on ultrasound. Surgery evaluation was appreciated and patient is s/p laproscopic cholecystecomy POD #1. Surgery is following. Leukocytosis has improved. Continue with iv antibiotics. Today she is noted to have anemia; postoperative anemia vs dilutional. Will repeat CBC this afternoon. Continue with analgesics as needed and transition to po for d/c planning likely tomorrow. Yojana Lowery MD Hospitalist.
[2018-06-11 16:55] LABS: BASO # 0.01 K/mm3 (0.0-2.0); BASO % 0.1 % (0.0-3.0); EOS # 0.1 (0.0-0.7); EOS % 0.9 % (1.5-5.0); LYMPH # 2.3 (1.2-3.4); LYMPH % 22.4 % (22.0-35.0); MEAN CELL VOLUME 97.1 fl (80.0-105.0); MEAN CORPUSCULAR HEMOGLOBIN 31.8 pg (25.0-35.0); MEAN CORPUSCULAR HGB CONC 32.7 g/dl (31.0-37.0); MEAN PLATELET VOLUME 9.8 fl (7.0-11.0); MONO # 0.6 (0.1-0.6); MONO % 6.1 % (1.0-6.0); RBC 3.46 10^6/uL (3.5-6.1); RED CELL DISTRIBUTION WIDTH 13.7 % (11.5-14.5); WHITE BLOOD COUNT 10.1 10^3/uL (4.5-11.0)
[2018-06-12] MEDS: metroNIDAZOLE IV 500 mg/100 ml 500 MG/100 ML BAG IVPB SCH ×3 (00:14→14:34)
[2018-06-12 06:57] LABS: HEMOGLOBIN 9.3 g/dL (12.0-16.0); MEAN CELL VOLUME 95.5 fl (80.0-105.0); MEAN CORPUSCULAR HEMOGLOBIN 31.8 pg (25.0-35.0); MEAN CORPUSCULAR HGB CONC 33.3 g/dl (31.0-37.0); MEAN PLATELET VOLUME 9.7 fl (7.0-11.0); RBC 2.92 10^6/uL (3.5-6.1); RED CELL DISTRIBUTION WIDTH 13.6 % (11.5-14.5); WHITE BLOOD COUNT 5.3 10^3/uL (4.5-11.0)
[2018-06-12 07:28] LABS: ALBUMIN 2.8 g/dL (3.0-4.8); ALT/SGPT 36 U/L (7-56); AST/SGOT 32 U/L (14-36); BLOOD UREA NITROGEN 16 mg/dL (7-21); CALCIUM 8.2 mg/dL (8.4-10.5); GFR NON-AFRICAN AMERICAN > 60
[2018-06-12] MEDS ORDERED: Pantoprazole 40 mg EC Tab PO SCH (07:30)
[2018-06-12 08:54] VITALS: BP 128/72; PULSE 81; RESP 18; TEMP 98; O2SAT 97
--- NOTE | 2018-06-12 09:17 | CP.PCM.PN ---
Subjective - Date & Time of Evaluation Date of Evaluation: 06/12/18 Time of Evaluation: 09:16 - Subjective Subjective: Surgery: Dr. Robles Pt seen and examined. No acute events overnight. Pt is tolerating diet. Pain controlled. Ambulating without difficulty. Objective - Vital Signs/Intake and Output Vital Signs (last 24 hours): Temp Pulse Resp BP Pulse Ox 98 F 81 18 128/72 97 06/12/18 06:00 06/12/18 06:00 06/12/18 06:00 06/12/18 06:00 06/12/18 06:00 Intake and Output: 06/12/18 06/12/18 06:59 18:59 Intake Total 180 Balance 180 - Medications Medications: Current Medications Acetaminophen (Tylenol 325mg Tab) 650 mg PO Q6H PRN PRN Reason: Pain, moderate (4-7) Docusate Sodium (Colace Liquid) 100 mg PO BID SKYE Last Admin: 06/11/18 18:10 Dose: Not Given Enoxaparin Sodium (Lovenox) 40 mg SC DAILY SKYE; Protocol Last Admin: 06/11/18 12:14 Dose: 40 mg Ceftriaxone Sodium (Rocephin 1 Gram Ivpb) 1 gm in 100 mls @ 100 mls/hr IVPB DAILY SKYE; Protocol Last Admin: 06/11/18 09:37 Dose: 100 mls/hr Metronidazole (Flagyl) 500 mg in 100 mls @ 100 mls/hr IVPB Q8 SKYE; Protocol Last Admin: 06/12/18 06:13 Dose: 100 mls/hr Pantoprazole Sodium (Protonix Ec Tab) 40 mg PO ACB SKYE Tramadol HCl (Ultram) 25 mg PO TID PRN PRN Reason: Pain, severe (8-10) - Labs Labs: 06/12/18 06:30 06/12/18 06:30 PT 22.2 SECONDS (9.4-12.5) H 06/10/18 06:50 INR 1.96 06/10/18 06:50 APTT 33.6 Seconds (26.9-38.3) 06/10/18 06:50 - Constitutional Appears: Non-toxic, No Acute Distress - Head Exam Head Exam: ATRAUMATIC, NORMOCEPHALIC - Eye Exam Eye Exam: EOMI - ENT Exam ENT Exam: Mucous Membranes Moist - Neck Exam Neck Exam: Full ROM - Respiratory Exam Respiratory Exam: NORMAL BREATHING PATTERN. absent: Accessory Muscle Use, Respiratory Distress - GI/Abdominal Exam GI & Abdominal Exam: Soft. absent: Distended, Firm, Guarding, Rigid, Tenderness, Rebound Additional comments: incisions C/D/I - Extremities Exam Extremities Exam: absent: Calf Tenderness, Pedal Edema - Neurological Exam Neurological Exam: Alert, Awake, Oriented x3 Assessment and Plan - Assessment and Plan (Free Text) Assessment: 72F s/p Laparoscopic Cholecystectomy POD#2 for gangrenous acute cholecystitis Plan: -Clear for D/C from surgical standpoint -Keflex for 5 days out patient -no heavy lifting >15-20 lbs for 4 weeks -f/u in office in 1-2 weeks -d/w attending Zemaitis PGY4
[2018-06-12] MEDS: Enoxaparin 40 mg Syringe SC SCH (09:26)
[2018-06-12] MEDS: cefTRIAXone 1 gm 1 GM/100 ML BAG IVPB SCH (09:27)
--- NOTE | 2018-06-12 13:03 | CP.PCM.DIS ---
Provider - Provider Date of Admission: 06/09/18 09:48 Attending physician: Yojana Lowery MD Primary care physician: Shady Bryant APN Consults: 06/09/18 13:57 Physician Consult Routine Comment: Consulting Provider: Santosh Robles Consulting Physician: Santosh Robles Reason for Consult: [facility] Course - Lab Results Lab Results: Micro Results 06/09/18 10:17 Blood Blood Culture - Preliminary NO GROWTH AFTER 3 DAYS 06/09/18 10:11 Blood Blood Culture - Preliminary NO GROWTH AFTER 3 DAYS Most Recent Lab Values WBC 5.3 10^3/uL (4.5-11.0) D 06/12/18 06:30 RBC 2.92 10^6/uL (3.5-6.1) L 06/12/18 06:30 Hgb 9.3 g/dL (12.0-16.0) L 06/12/18 06:30 Hct 27.9 % (36.0-48.0) L 06/12/18 06:30 MCV 95.5 fl (80.0-105.0) 06/12/18 06:30 MCH 31.8 pg (25.0-35.0) 06/12/18 06:30 MCHC 33.3 g/dl (31.0-37.0) 06/12/18 06:30 RDW 13.6 % (11.5-14.5) 06/12/18 06:30 Plt Count 135 10^3/uL (120.0-450.0) 06/12/18 06:30 MPV 9.7 fl (7.0-11.0) 06/12/18 06:30 Neut % (Auto) 70.5 % (50.0-68.0) H 06/11/18 16:47 Lymph % (Auto) 22.4 % (22.0-35.0) 06/11/18 16:47 [place] % (Auto) 6.1 % (1.0-6.0) H 06/11/18 16:47 Eos % (Auto) 0.9 % (1.5-5.0) L 06/11/18 16:47 Baso % (Auto) 0.1 % (0.0-3.0) 06/11/18 16:47 Lymph # (Auto) 2.3 (1.2-3.4) 06/11/18 16:47 [place] # (Auto) 0.6 (0.1-0.6) 06/11/18 16:47 Eos # (Auto) 0.1 (0.0-0.7) 06/11/18 16:47 Baso # (Auto) 0.01 K/mm3 (0.0-2.0) 06/11/18 16:47 Absolute Neuts (auto) 7.14 (1.4-6.5) H 06/11/18 16:47 PT 22.2 SECONDS (9.4-12.5) H 06/10/18 06:50 INR 1.96 06/10/18 06:50 APTT 33.6 Seconds (26.9-38.3) 06/10/18 06:50 Sodium 139 mmol/L (132-148) 06/12/18 06:30 Potassium 4.2 mmol/L (3.6-5.0) 06/12/18 06:30 Chloride 110 mmol/L (98-107) H 06/12/18 06:30 Carbon Dioxide 27 mmol/L (21-33) 06/12/18 06:30 Anion Gap 6 (10-20) L 06/12/18 06:30 BUN 16 mg/dL (7-21) 06/12/18 06:30 Creatinine 0.8 mg/dl (0.7-1.2) 06/12/18 06:30 Est GFR ( Amer) > 60 06/12/18 06:30 Est GFR (Non-Af Amer) > 60 06/12/18 06:30 Random Glucose 127 mg/dL (70-110) H 06/12/18 06:30 Calcium 8.2 mg/dL (8.4-10.5) L 06/12/18 06:30 Total Bilirubin 0.4 mg/dL (0.2-1.3) 06/12/18 06:30 AST 32 U/L (14-36) 06/12/18 06:30 ALT 36 U/L (7-56) 06/12/18 06:30 Alkaline Phosphatase 70 U/L (38-126) 06/12/18 06:30 Total Protein 5.7 g/dL (5.8-8.3) L 06/12/18 06:30 Albumin 2.8 g/dL (3.0-4.8) L 06/12/18 06:30 Globulin 2.8 gm/dL 06/12/18 06:30 Albumin/Globulin Ratio 1.0 (1.1-1.8) L 06/12/18 06:30 Lipase 32 U/L (23-300) 06/09/18 06:11 Urine Color Yellow (YELLOW) 06/09/18 09:00 Urine Appearance Clear (CLEAR) 06/09/18 09:00 Urine pH 6.0 (4.7-8.0) 06/09/18 09:00 Ur Specific [place] >= 1.030 (1.005-1.035) 06/09/18 09:00 Urine Protein Trace mg/dL (<30 mg/dL) H 06/09/18 09:00 Urine Glucose (UA) Negative mg/dL (NEGATIVE) 06/09/18 09:00 Urine Ketones Trace mg/dL (NEGATIVE) H 06/09/18 09:00 Urine Blood Trace-intact (NEGATIVE) H 06/09/18 09:00 Urine Nitrate Negative (NEGATIVE) 06/09/18 09:00 Urine Bilirubin Negative (NEGATIVE) 06/09/18 09:00 Urine Urobilinogen 1.0 E.U./dL (<1 E.U./dL) H 06/09/18 09:00 Ur Leukocyte Esterase Negative Mauricio/uL (NEGATIVE) 06/09/18 09:00 Urine RBC 1 - 3 /hpf (0-2) H 06/09/18 09:00 Urine WBC 0 - 2 /hpf (0-6) 06/09/18 09:00 Ur Epithelial Cells 4 - 5 /hpf (0-5) 06/09/18 09:00 Amorphous Sediment Few /hpf (NONE) 06/09/18 09:00 Urine Bacteria Mod /hpf (NONE) 06/09/18 09:00 Blood Type B POSITIVE 06/10/18 06:50 Blood Type Confirm B POSITIVE 06/10/18 08:00 Antibody Screen Negative 06/10/18 06:50 BBK History Checked No verified bt 06/10/18 06:50 Discharge Exam - Head Exam Head Exam: ATRAUMATIC, NORMOCEPHALIC Discharge Plan - Discharge Medications Prescriptions: Cephalexin [Keflex] 500 mg PO BID 5 Days #10 capsule traMADol [Ultram] 25 mg PO TID PRN 2 Days #6 tab PRN Reason: Pain, Severe (8-10) - Follow Up Plan Condition: FAIR Disposition: HOME/ ROUTINE Instructions: Cholecystectomy, Laparoscopic Surgery, Cholecystitis (GEN) Additional Instructions: - Please follow up with the Surgeon Dr. Robles. His office number is for appointment within 1-2 weeks. His office is located at [address] [place] [address]. - You are prescribed an antibiotic: Keflex 500mg by mouth twice a day for 5 days. Please ensure to complete the entire course of the antibiotics. - f/u with your primary care doctor's office in 1-2 weeks - Please continue to take your home medications as prescribed. - Understand that there may be some associated shoulder and abdominal pain which can be caused by the gas used during the surgery. This is normal and there is no reason to be alarmed. - Avoid submerging the abdomen in a bathtub for 48 hours after the procedure - Please watch for signs of incision infection like fevers, chills, drainage, swelling, redness or increased tenderness to the area and return to the hospital in you notice these symptoms. - Please continue to use the incentive spirometer (the breathing machine you use to help take deep breaths in). - Please only use the pain medications as needed. - Please slowly transition to regular diet by having a low fat bland diet until you can better tolerate a regular diet. - Please do not lift any heavy objects(15-20 lbs) for the next 4 weeks. - If you begin to feel any new or worsening symptoms, please return to the emergency department. Referrals: Santosh Robles MD [Staff Provider] - Manny GOLDEN,Shady Ribeiro APN [Primary Care Provider] -
== END 2018-06-12 15:10 | disposition home or self-care (01) | DRG 419 ==
LOC: ED 06:02 → ERH 09:48 → 5RNO 11:50
PROVIDERS: ADMIT Internal Medicine; ATTEND Internal Medicine
PROC: BF131ZZ Fluoroscopy of Gallbladder and Bile Ducts using Low Osmolar Contrast (ICD-10-PCS; 2018-06-10)
PROC: 0FT44ZZ Resection of Gallbladder, Percutaneous Endoscopic Approach (ICD-10-PCS; principal; 2018-06-10 07:30)
DX: K80.00 Calculus of gallbladder with acute cholecystitis without obstruction (principal); I10 Essential (primary) hypertension; K21.9 Gastro-esophageal reflux disease without esophagitis; D64.9 Anemia, unspecified; K59.00 Constipation, unspecified; Z90.49 Acquired absence of other specified parts of digestive tract